=== PATIENT | male | born 1970 | race Caucasian/White ===

== ENCOUNTER 2023-07-10 22:46 | Inpatient (IN) | payer BC, SELFPAY ==
[2023-07-10 17:59] VITALS: BP 160/94
[2023-07-10 18:19] LABS: % Basophils 0.5 % (0-2); % Eosinophils 2.3 % (0-6); % Immature Granulocytes 0.3 % (0-0.5); % Monocytes 7.9 % (1.7-9.3); Absolute Basophils 0.1 10^3/uL (0-0.2); Absolute Eosinophils 0.3 10^3/uL (0-0.7); Absolute Lymphocytes 2.3 10^3/uL (1.2-3.4); Absolute Monocytes 1.2 10^3/uL (0.1-0.6); Absolute Neutrophils 10.7 10^3/uL (1.4-6.5); Hematocrit 52.1 % (39.0-52.0); Hemoglobin 16.8 g/dL (13.0-18.0); Mean Corp Hgb Conc. 32.2 g/dL (33.0-37.0); Mean Corpuscular Hgb 28.9 pg (27.0-31.0); Mean Corpuscular Volume 89.5 fL (80.0-94.0); Mean Platelet Volume 8.9 fL (7.4-10.4); Nucleated Red Blood Cells % 0 % (-); Platelet Count 325 10^3/uL (130-400); Red Blood Cell Count 5.82 10^6/uL (4.70-6.10); Red Cell Dist. Width 13.8 % (11.5-14.5); White Blood Cell Count 14.6 10^3/uL (4.8-10.8)
[2023-07-10 18:32] LABS: ALT (SGPT) 36 U/L (0-50); AST (SGOT) 21 U/L (17-59); Albumin 4.8 g/dl (3.5-5.0); Alkaline Phosphatase 102 U/L (38-126); Blood Urea Nitrogen 15 mg/dl (9-20); Calcium 10.2 mg/dl (8.4-10.2); Carbon Dioxide 29 mmol/L (22-30); Chloride 98 mmol/L (98-107); Glucose 187 mg/dl (70-99); Lipase 902 U/L (23-300); Potassium 4.1 mmol/L (3.5-5.1); Sodium 136 mmol/L (135-145); Total Bilirubin 0.7 mg/dl (0.2-1.3); Total Protein 7.9 g/dl (6.3-8.2); eGFR > 60.00
[2023-07-10 18:42] LABS: Troponin I < 0.012 ng/ml
[2023-07-10 19:49] LABS: Glucose - Point of Care 133 mg/dl (70-99)
[2023-07-10 19:52] VITALS: BMI 25.2
--- NOTE | 2023-07-10 20:04 | ED.GENMED ---
History of Present Illness
General
Chief Complaint: Abdominal Pain
Source: patient and spouse
Exam Limitations: none
Time Seen by Provider: 07/10/23 19:49
Nursing documentation reviewed up to this point in time: agreed with
Travel History
Have you had any contact with someone who has COVID-19?: No
Do you have any symptoms of coronavirus? Fever > 100 degrees, chills, cough, shortness of breath, sore throat, loss of taste or smell, muscle aches, or headache?: No
History of Present Illness
History of Present Illness:
53-year-old male presents emergency department due to upper abdominal pain and diffuse abdominal pain. He has had gallbladder cysts in the past, and is diabetic.
Past History
Past History
ED Past Medical History: Hypercholesterolemia, IDDM and NIDDM
ED Past Surgical History: Orthopedic (Back surgery)
Social History
Tobacco: Non-smoker
Alcohol: None
Drug: None
Personal:
Living: with family
Employment: Employed
Review of Systems
Review of Systems
Allergies reviewed?: Yes
All Other Systems: Not applicable
Constitutional: Reports no symptoms
EENT: Reports no symptoms
Respiratory: Reports no symptoms
Cardiac: Reports no symptoms
ABD/GI: Reports abdominal pain and nausea
: Reports no symptoms
Musculoskeletal: Reports no symptoms
Skin: Reports no symptoms
Neurological: Reports no symptoms
Endocrine: Reports no symptoms
Hematologic/Lymphatic: Reports no symptoms
Psychiatric: Reports no symptoms
Phy Exam
Physical Exam
Physical Exam:
Physical Exam
General: Afebrile
Neck: supple. no meningeal signs. normal posterior pharynx
Heart: s1/s2 regular rate and rhythm, no murmur. equal radial
pulses.
HEENT: Pupils equal round reactive to light, EOMI
Lungs: no acute respiratory distress. clear bilaterally
Abdomen: normal bowel sounds. Diffuse abdominal tenderness, worse in right upper quadrant. No CVAT
Neuro: alert and oriented. no focal neurological deficits cranial nerves II through XII intact
Skin: no rash
Psychiatric: well kept. interactive and cooperative
Extremities: no edema. no calf tenderness. negative homans. good distal pulses
Course
Orders/Labs/Results
Orders:
Orders
07/10/23 Breakfast
NPO
Allow oral meds: Yes
Allow clear liquids: Sips of Clears
NPO with Ice Chips: Yes
07/10/23 18:00
EKG [Electrocardiogram (*1)] Urgent
Reason for Study: Abdominal Pain
07/10/23 18:01
EKG- Treatment ONCE
US Abdomen Complete/Upper Urgent
Comment:
Reason For Exam: upper abdominal pain, history of galbladder issues
07/10/23 18:08
Complete Blood Count/With Diff Urgent
Comprehensive Metabolic Panel Urgent
Lipase Urgent
Troponin I Urgent
07/10/23 20:18
Iohexol [Omnipaque] See Protocol PO NOW STA
07/10/23 20:19
CT Abd/pelvis W Iv Cont Urgent
Comment:
Reason For Exam: diffuse abdominal pain, worse in epigastric area
07/10/23 20:25
IV Insert/Care/Rem.- Treatment PRN
0.9% Sodium Chloride 1000 ml [Nss] 1,000 ml IV BOLUS
07/10/23 21:18
Acetaminophen [Tylenol] 650 mg PO NOW STA
07/10/23 21:42
Admit/Transfer Patient As Directed
Co-Sign Provider:
Level of Care: Inpatient admission
Assign to:: Medical/Surgical
Physician / Group: Mc
Diagnosis: Pancreatitis
Reason for Hospitalization: IVFs, GI Consult
Expected length of stay greater than two midnights?: Yes
ELOS- Estimated Length of Stay in days: 3
I certify the patient meets the requirements for IP care: Yes
07/10/23 21:43
Code Status As Directed
Resuscitation Status: Full Code
07/10/23 23:13
0.9% Sodium Chloride 1000 ml [Nss] 1,000 ml IV 125 mls/hr
Acetaminophen [Tylenol] 650 mg PO Q4HPRN PRN
Dextrose 50%-Water [Dextrose 50% Syringe] 12.5 grams IV [id number] PRN
Glucagon [GlucaGen] 1 mg IM PRN PRN
HYDROmorphone [Dilaudid] 0.25 mg IV Q3HPRN PRN
Ketorolac [Toradol] 15 mg IV Q6HPRN PRN
Ondansetron Injectable [Zofran] 4 mg IV Q6HPRN PRN
07/10/23 23:13
Consult Notification Routine
Specialty to Notify: Gastroenterology
GASTROINTESTINAL CONSULT Routine
Consulting Provider: Martin Anderson
Was physician already notified: No
Reason for consult: Pancreatitis
Activity As Directed
Activity Level: Out of Bed-Early Mobility
With Assistance
Bedside Glucose Monitoring As Directed
Frequency: AC&HS
Additional Instructions:: Change to q6h if pt on TPN, tube feeding or not eating
I&O [Intake/ Output] As Directed
Frequency: q12h
Sequential Compression Device [Pneumatic Compression Sleeves] As Directed
Type: Knee high
Vital Signs As Directed
Frequency: Per unit guidelines
Weight As Directed
Frequency: Daily
DX Deep Vein Thrombosis Video Routine
07/11/23 06:00
Complete Blood Count/No Diff IN AM
Comprehensive Metabolic Panel IN AM
Glycohemoglobin (HgbA1c) IN AM
Lipase IN AM
Triglycerides IN AM
07/11/23 07:30
Insulin Aspart Corrective Mod [Novolog Flexpen-Moderate Resistance] See Protocol SC AC
07/11/23 08:00
Pantoprazole [Protonix IV] 40 mg IV DAILY
Abnormal Lab Results
07/10/23 07/10/23
18:08 19:47
WBC 14.6 H 10^3/uL
(4.8-10.8)
Hct 52.1 H %
(39.0-52.0)
MCHC 32.2 L g/dL
(33.0-37.0)
Absolute Neuts (auto) 10.7 H 10^3/uL
(1.4-6.5)
Absolute Monos (auto) 1.2 H 10^3/uL
(0.1-0.6)
Lymphocytes % 16.0 L %
(20.5-51.1)
Glucose 187 H mg/dl
(70-99)
Lipase 902 H U/L
(23-300)
POC Glucose 133 H mg/dl
(70-99)
07/10/23 18:08
07/10/23 18:08
Vital Signs
Initial and Last Documented VS:
Initial Vital Signs
Temp Pulse Resp BP Pulse Ox
98.0 F 85 17 160/94 99
07/10/23 17:59 07/10/23 17:59 07/10/23 17:59 07/10/23 17:59 07/10/23 17:59
Last Documented Vital Signs
Temp Pulse Resp BP Pulse Ox
98.0 F 85 17 160/94 99
07/10/23 17:59 07/10/23 17:59 07/10/23 17:59 07/10/23 17:59 07/10/23 17:59
MDM/Problems Addressed
Differential Diagnosis Includes:
Pancreatitis, cholecystitis
MDM/Problems Addressed:
53-year-old male with acute pancreatitis, unclear etiology. Admit to hospitalist.
Chronic conditions affecting care: DM
Acute Exacerbation and/or Progression of Chronic Illness: DM
*Radiology
Radiology exam reviewed: radiology read reviewed (Ultrasound no acute findings, CT abdomen pelvis shows pancreatic edema)
*Pulse Oximetry
Patient hypoxic: no
*EKG
Interpreted by ED Provider?: Yes
EKG Intrepretation Date: 07/10/23
EKG Intrepretation Time: 18:04
Interpretation: normal
Comparison EKG: no changes
Heart Rate: 79
Rate: normal
Rhythm: sinus
[place]: normal axis
Interval: normal interval
QRS Pattern: normal QRS
Ischemia: no ischemia
*District Sales Leader Interpretation
Rate: normal
Interpretation: normal
Heart Rate: 88
Rhythm: sinus
*Critical Care Note
Total Time (30-74mins, 75-104mins- exclusive of procedures): Not Applicable
Patient Management
Social determinants of health affecting care: Living situation
Discussion with other providers: Hospitalist
Escalation/DeEscalation of care consider admission/obs:
Admit indicated
ED Attending Note
-
Portions of this chart may have been created with voice recognition software.� Occasional wrong word or��sound alike� substitutions may have occurred due to the inherent limitations of voice recognition software.
Discharge Plan
Departure
Patient Disposition: Admit
Date of Disposition: 07/10/23
Time of Disposition: 21:19
Admit to: Med/Surg
Presentation/result/management discussed w/ accepting MD/DO: Hospitalist
Patient with high blood pressure during this ER visit?: Yes
Condition: Fair
Discharge Problem:
Acute pancreatitis
Interventions
Interventions:
*Risk Screen - Suicide Last Done: 07/10/23 17:59
*General Assessment Last Done: 07/10/23 17:59
*Neglect/Abuse Screening Last Done: 07/10/23 17:59
*ED COVID-19 Vaccine History Last Done: 07/10/23 17:59
JY-Lhnofa-Zcyaidpvpq Assessment Last Done: 07/10/23 19:52
[2023-07-10] MEDS: OMNIPAQUE 50 ML PO (20:27)
[2023-07-10] MEDS: NSS 1000 IV (20:36)
[2023-07-10] MEDS: TYLENOL 650 MG PO (21:21)
--- NOTE | 2023-07-10 22:39 | HPS.HSE ---
Addendum entered and electronically signed by Navneet Bentley DO 07/10/23 23:47:
Patient seen and examined independently. Agree with findings and plan as set forth by Christel Gonzalez PA-C.
Patient is a 53y M with PMH significant for DM-II who presents to ED complaining of abdominal pain with nausea x 3 days. Symptoms no worse / better despite PO intake. No prior history of similar symptoms. No fevers / chills, etc.
Patient has a known history of gallbladder polyps, but no cholelithiasis seen on multiple prior ultrasounds. He denies any alcohol intake.
He states that he and his PCP have discussed the potential for pancreatitis in the past - though it is not clear what might have prompted such discussions.
Ass:
Acute Pancreatitis
DM-II
Dyslipidemia
Plan:
Admit for further evaluation and treatment.
NPO, IVFs, pain control, antiemetics, etc.
Hold PO meds including DM medications acutely.
Follow glucose and cover with SSI (or supplemental dextrose) as needed.
GI evaluation for additional recommendations.
Follow for clinical improvement.
Original Note:
Family Physician
-
Family Physician: Duglas Garcia
Chief Complaint
-
Abdominal Pain
History of Present Illness
Patient is a 53 y/o male with a past medical history of diabetes mellitus, and hyperlipidemia who presents for abdominal pain, anorexia, diaphoresis, and nausea since Saturday. He starting experiencing intermittent epigastric pain with nausea on
Saturday afternoon. He tried taking Tums and Pepto Bismol but they did not alleviate his symptoms. He continued to experience these symptoms intermittently yesterday and today without improvement. He notes that his abdomen appears much more distended
than usual today. Today he called his primary care physician and he was advised to go to the emergency department. He denies shortness of breath, chest pain, and vomiting.
Medical History
Past Medical History
Past Medical History: Reports Other
Additional Past Medical History:
Diabetes Mellitus, Type II
Dyslipidemia
Past Surgical History: Reports Other
Additional Past Surgical History:
Lumbar Discectomy
Social History
Tobacco: Former Smoker (Quit 25 years ago)
Alcohol: None
Personal:
Family History
Family History: Not pertinent
Allergies / Home Medications
Allergies reflects when Allergies were last updated in [facility].
Home Medications with original date entered in [facility]
Allergy/Medication List:
Allergies
Allergy/AdvReac Type Severity Reaction Status Date / Time
Penicillins Allergy Unknown Verified 07/10/23 17:57
vancomycin Allergy Itching Verified 07/10/23 17:57
Home Medications
atorvastatin 20 mg tablet 20 mg PO DAILY 06/19/18
metformin 500 mg tablet 1,000 mg PO BID 06/19/18
aspirin 81 mg tablet,delayed release 81 mg PO DAILY 07/10/23
dulaglutide 1.5 mg/0.5 mL subcutaneous pen injector (Trulicity) 1.5 mg SC JULIO 07/10/23
empagliflozin 25 mg tablet (Jardiance) 25 mg PO DAILY 07/10/23
Review of Systems
-
A 12 point ROS was completed and negative except as noted: Yes
Constitutional: Denies Fever or Chills
Respiratory: Denies Cough or Trouble Breathing
Cardiac: Denies Chest Pain or Palpitations
Abdomen/GI: Reports See HPI
Physical Exam
Vital Signs
Vital Signs
Temp Pulse Resp BP Pulse Ox
98.0 F 85 17 160/94 99
07/10/23 17:59 07/10/23 17:59 07/10/23 17:59 07/10/23 17:59 07/10/23 17:59
Physical Exam
General: Comfortable and Conversant
HEENT: Anicteric and Moist mucous membranes
Respiratory: Clear and Non Labored Respirations
Cardiac: S1/S2 and Regular Rhythm
GI: Soft, Tender (Epigastric region without rebound or guarding) and Distended (Mild in upper regions)
Rectal: Deferred by Provider
Musculoskeletal: No Clubbing, No Cyanosis and No Edema
Skin: Warm and Dry
Neuro: Awake, Alert, Oriented and Nonfocal/grossly intact
Psych: Calm
Laboratory Results
-
07/10/23 18:08
07/10/23 18:08
Laboratory Results
Total Bilirubin 0.7 mg/dl (0.2-1.3) 07/10/23 18:08
AST 21 U/L (17-59) 07/10/23 18:08
ALT 36 U/L (0-50) 07/10/23 18:08
Alkaline Phosphatase 102 U/L (38-126) 07/10/23 18:08
Troponin I < 0.012 ng/ml 07/10/23 18:08
Lipase 902 U/L (23-300) H 07/10/23 18:08
Data Reviewed
-
CT Scan: Report Reviewed by me
Ultrasound: Report Reviewed by me
Lab Data: Labs Reviewed by me
Impression/Plan
-
Acute Pancreatitis, unclear etiology, possible medication vs auto-immune related
-Consult GI
-Continue NPO/IVFs
-Continue pain control
Diabetes Mellitus, Type II
-Hold oral meds
-Monitor sugars and continue coverage insulin
Dyslipidemia
-Hold atorvastatin while NPO
DVT proph: SCDs
Code Status: Full Code
[2023-07-10 23:00] VITALS: BP 140/79
[2023-07-11 00:32] LABS: Glucose - Point of Care 106 mg/dl (70-99)
[2023-07-11] MEDS: NSS 1000 IV ×2 (00:35→08:32)
[2023-07-11] MEDS: TORADOL 15 MG IV ×4 (00:37→19:53)
[2023-07-11 04:42] VITALS: BMI 25.5
[2023-07-11 05:06] VITALS: BP 133/95
[2023-07-11 05:17] LABS: Hematocrit 44.4 % (39.0-52.0); Hemoglobin 15.2 g/dL (13.0-18.0); Mean Corp Hgb Conc. 34.2 g/dL (33.0-37.0); Mean Corpuscular Hgb 29.3 pg (27.0-31.0); Mean Corpuscular Volume 85.7 fL (80.0-94.0); Mean Platelet Volume 8.9 fL (7.4-10.4); Platelet Count 267 10^3/uL (130-400); Red Blood Cell Count 5.18 10^6/uL (4.70-6.10); Red Cell Dist. Width 13.7 % (11.5-14.5); White Blood Cell Count 12.2 10^3/uL (4.8-10.8)
--- NOTE | 2023-07-11 05:29 | PTCARENOTE ---
Received pt from ED via stretcher into room 9582. Patient ambulated self w/out difficulty. Pt AAOx3, VSS, and sating 97% RA. Patient c/o upper abdomen 'bloating' and tender to palpation. Patient does not wish to take Tylenol at this time, and is
requesting Toradol. Patient is not due for Toradol until approx 06:37. Patient made aware and would like to wait. Oriented to room, call bull in reach. Aware of POC.
[2023-07-11 05:49] LABS: ALT (SGPT) 28 U/L (0-50); AST (SGOT) 19 U/L (17-59); Albumin 3.7 g/dl (3.5-5.0); Alkaline Phosphatase 90 U/L (38-126); Blood Urea Nitrogen 14 mg/dl (9-20); Carbon Dioxide 24 mmol/L (22-30); Chloride 104 mmol/L (98-107); Estimated Creatinine Clearance 104 ml/min; Glucose 112 mg/dl (70-99); Lipase 648 U/L (23-300); Sodium 134 mmol/L (135-145); Total Protein 6.3 g/dl (6.3-8.2); Triglycerides 82 mg/dl (10-149); eGFR > 60.00
[2023-07-11 07:28] VITALS: BP 140/82
[2023-07-11] MEDS: PROTONIX IV 40 MG IV (07:41)
[2023-07-11] MEDS: NSS (PRESERVATIVE FREE) 10 ML IV (07:41)
[2023-07-11 08:37] LABS: Glycohemoglobin (HgbA1c) 7.7 % (4.0-5.6)
--- NOTE | 2023-07-11 09:41 | CON.GI ---
Addendum entered and electronically signed by Martin Anderson MD 07/11/23 11:53:
I saw and examined the patient.
The SENIOR FINANCE MANAGER or PA's note was reviewed and I agree with the note.
Comment: 53yo male presents with abdominal pain, nausea since Saturday. Tried antacids but no improvement. Spoke with PCP who directed him to ER suspecting pancreatitis. Lipase 902. CT shows acute pancreatitis in head with large amt peripancreatic
edema. US shows GB polyps but no stones. He does not drink EtOH. No prior episodes of pancreatitis. No new meds- currently on Trulicity and Jardiance for DM. TG normal
REC:
Clears
Aggressive IVF
Already feeling better. Try solid foods for dinner
Check ALEXANDR, IgG4
Perhaps this could be medication induced pancreatitis due to Trulicity (has been reported with the GLP-1 agonists) or Jardiance (reported post marketing)
Original Note:
Consultation
-
Date/Time Consultation Requested: 07/10/23 5790
Date/Time Consultation Performed: 07/11/23 0915
Requesting Provider: Christel Gonzalez PA-C
Performing Provider: PITA Dupree, Martin Anderson MD
Reason for Consultation: pancreatitis
Medical History
Chief Complaint / HPI
Chief Complaint: abdominal pain
History of Present Illness:
Pt is a 53yo with hx diabetes for last 12 years(last med change in summer 2022 current Jardiance, trulicity use, lumbar surgery with occasional NSAID use for back pain, dyslipidemia, fatty liver, gallbladder polyps with prior gallbladder attack
several years ago presents with onset of abdominal pain with nausea and decreased appetite. He also admits to evaluation to hematology He initially tried antacids and pepto but symptoms progressed and presents to ER. In ER noted with lipase of
[address] notable for large amount of pancreatic and peripancreatic edema. no fluid collections, and mild reactive wall thickening in duodenum with ileus. HM steatosis and renal cysts, GB normal. US with no stone, acute cholecystitis or
obstruction, multiple Small GB polyps, steatosis, chronic renal disease b/l renal cysts. No prior hx pancreatitis or family hx pancreatitis , no ETOH or supplement use. No recent medication changes. TG 82, calcium 10.2 after admission.
Pt admits to pain 01/01 prior to admission now 3/10 mid to upper abdomen improved with pain meds. Some nausea with symptoms but no GERD, vomiting, hematemesis, diarrhea, constipation or rectal bleeding. No prior EGD. colon 1-2 years ago +
polyps done in [place].
Past Medical History
Past Medical History: Hypercholesterolemia, NIDDM and Other (fatty liver, gallbladder polyps, cervical disc disease, vitamin D deficiency, heme eval for elevated hbg, colon polyps )
Past Surgical History: Orthopedic (lumbar discectomy, b/l knee arthroscopy) and Other (lipoma from back removed)
Social History
Tobacco: Non-Smoker
Alcohol: None
Drug: None
Personal:
Living: With Family
Employment: Employed (travels with job )
Family History
Family History: Other (no family hx pancreatitis or pancreatic problems)
Allergies / Home Medications
Allergy/AdvReac Type Severity Reaction Status Date / Time
Penicillins Allergy Tested Verified 07/10/23 23:14
years ago.
vancomycin Allergy Itching Verified 07/10/23 23:14
AND RASH
�Medication �Instructions �Recorded
atorvastatin 20 mg tablet 20 mg PO DAILY High Cholesterol 06/19/18
metformin 500 mg tablet 1,000 mg PO BID Diabetes 06/19/18
aspirin 81 mg tablet,delayed 81 mg PO DAILY Blood Clot 07/10/23
release Prevention/Tx
dulaglutide 1.5 mg/0.5 mL 1.5 mg SC JULIO Diabetes 07/10/23
subcutaneous pen injector
(Trulicity)
empagliflozin 25 mg tablet 25 mg PO DAILY Diabetes 07/10/23
(Jardiance)
Review of Systems
-
History Source: Patient and Family
Constitutional: Reports Weight Loss (few lbs)
EENT: Reports No Symptoms
Respiratory: Reports No Symptoms
Cardiac: Reports No Symptoms
Abdomen/GI: Reports Abdominal Pain and Nausea
: Reports No Symptoms
Musculoskeletal: Reports Other (occasional back pain)
Skin: Reports No Symptoms
Neurological: Reports Weakness
Endocrine: Reports No Symptoms
Hematologic/Lymphatic: Reports No Symptoms
Vital Signs
Temp Pulse Resp BP Pulse Ox
98.3 F 80 18 140/82 96
07/11/23 07:00 07/11/23 09:24 07/11/23 07:00 07/11/23 07:28 07/11/23 07:00
Physical Exam
Exam
General: Well Developed, Well Nourished and No Apparent Distress
HEENT: Normocephalic and Anicteric
Respiratory: Clear
Cardiac: Regular Rhythm
GI: Soft, Non Distended and Tender (mid abdomen )
Musculoskeletal: No Clubbing and No Cyanosis
Skin: Warm and Dry
Neuro: Awake, Alert and AO x 3
Psych: Calm
Results
WBC 12.2 10^3/uL (4.8-10.8) H 07/11/23 05:05
Hgb 15.2 g/dL (13.0-18.0) 07/11/23 05:05
Hct 44.4 % (39.0-52.0) 07/11/23 05:05
MCV 85.7 fL (80.0-94.0) 07/11/23 05:05
Plt Count 267 10^3/uL (130-400) 07/11/23 05:05
Absolute Neuts (auto) 10.7 10^3/uL (1.4-6.5) H 07/10/23 18:08
Sodium 134 mmol/L (135-145) L 07/11/23 05:05
Potassium 4.0 mmol/L (3.5-5.1) 07/11/23 05:05
Chloride 104 mmol/L (98-107) 07/11/23 05:05
Carbon Dioxide 24 mmol/L (22-30) 07/11/23 05:05
BUN 14 mg/dl (9-20) 07/11/23 05:05
Creatinine 0.8 mg/dL (0.7-1.3) 07/11/23 05:05
Calcium 9.0 mg/dl (8.4-10.2) 07/11/23 05:05
Total Bilirubin 1.0 mg/dl (0.2-1.3) 07/11/23 05:05
AST 19 U/L (17-59) 07/11/23 05:05
ALT 28 U/L (0-50) 07/11/23 05:05
Alkaline Phosphatase 90 U/L (38-126) 07/11/23 05:05
Lipase 648 U/L (23-300) H 07/11/23 05:05
Diagnostic Image Results:
07/10/23 CT Abd/pelvis W Iv Cont
1. ACUTE INTERSTITIAL EDEMATOUS PANCREATITIS (greatest in the pancreatic head) with a large amount of pancreatic and peripancreatic edema.
2. No CT evidence for acute peripancreatic fluid collection.
3. Mild reactive wall thickening in the duodenum and moderate distention of the duodenum and stomach which is likely secondary to an ileus.
4. Mild hepatomegaly and mild diffuse hepatic steatosis.
5. Large number of bilateral parapelvic renal cysts.
07/10/23
1. No sonographic evidence for cholelithiasis, acute cholecystitis, or biliary obstruction.
2. Multiple small gallbladder polyps.
3. Severe diffuse hepatic steatosis.
4. Mild hepatosplenomegaly.
5. Moderate chronic bilateral renal disease.
6. Bilateral parapelvic renal cysts.
Prior GI Procedures:
EGD: none
Colonoscopy: 1-2 years ago with polyps
Assessment / Plan
-
Pt is a 53yo with hx diabetes for last 12 years(last med change in summer 2022 current Jardiance, trulicity use, lumbar surgery with occasional NSAID use for back pain, dyslipidemia, fatty liver, gallbladder polyps with prior gallbladder attack
several years ago presents with onset of abdominal pain with nausea and decreased appetite. He also admits to evaluation to hematology He initially tried antacids and pepto but symptoms progressed and presents to ER. In ER noted with lipase of
[address] notable for large amount of pancreatic and peripancreatic edema. no fluid collections, and mild reactive wall thickening in duodenum with ileus. HM steatosis and renal cysts, GB normal. US with no stone, acute cholecystitis or
obstruction, multiple Small GB polyps, steatosis, chronic renal disease b/l renal cysts. No prior hx pancreatitis or family hx pancreatitis , no ETOH or supplement use. No recent medication changes. TG 82, calcium 10.2 after admission.
-pancreatitis first episode
-concern for ileus and adjacent duodenal thickening
-leukocytosis
-recent heme work up for elevated hbg polycythemia vs erythrocytosis
-DM on chronic Jardiance/Trulicity/metformin
-NSAID use of back pain
-fatty liver
-GB polyps with prior GB attack
-dyslipidemia
-chronic renal disease in imaging
-hx colon polyps
PLAN:
Etiology of pancreatitis unclear-- no ETOH, normal TG, calcium, no family hx pancreatic issues, no stones on US or CT, no med changes but on Trulicity and Jardiance both with report post marketing pancreatitis per [employer], related to underlying
heme issue with ? polycythemia vs other -- less likely but in differential duodenal ulcer with thickening and NSAID use
-add IGG4 and ALEXANDR
-reviewed heme note polycythemia vs erythrocytosis -- MENDY-2, CL, AR mutation neg last visit in 11/2022 improve hematocrit, bone marrow bx held
-agree with aggressive IVF to change to LR at 200ml/hr
-pain control
-trial clear diet monitor for nausea with possible ileus if tolerating ADA diet later today
-discussed at length NSAID avoidance with duodenal thickening and renal disease
-on discharge GI follow up consider MRI(pt states he can not tolerate)/EUS if not better
-GI follow up for fatty liver
-
-
Thank you for consultation and allowing me to participate in the patient's care. Please call the button riveter GI physician during the after hours with any questions or concerns.
--- NOTE | 2023-07-11 09:56 | W.PN.HOSP.TC ---
Today's Communication/Plan
-
see bold
Assessment / Plan
Assessment / Plan
Gen: NAD, AAOx3.
Eyes: EOMI, PERRLA, no scleral icterus.
Neck: supple.
CV: RRR, +S1/S2, no m/r/g.
Resp: CTAB, no rales, wheezes, or rhonchi.
Abd: +BS, soft, mild epigastric TTP, ND
Skin: No rashes.
Neuro: CN 2-12 intact, non-focal.
Psych: Normal mood and affect.
CT A/P:
1. ACUTE INTERSTITIAL EDEMATOUS PANCREATITIS (greatest in the pancreatic head) with a large amount of pancreatic and peripancreatic edema.
2. No CT evidence for acute peripancreatic fluid collection.
3. Mild reactive wall thickening in the duodenum and moderate distention of the duodenum and stomach which is likely secondary to an ileus.
4. Mild hepatomegaly and mild diffuse hepatic steatosis.
5. Large number of bilateral parapelvic renal cysts.
Acute Pancreatitis, unclear etiology, possible medication vs auto-immune related
-Consult GI
-NPO
-change IVFs to LR @ 200cc/hr
-Continue pain control
Diabetes Mellitus, Type II
-Holding oral antihyperglycemics
-SSI/accuchecks
Dyslipidemia
-Holding atorvastatin while NPO
FULL/SCDs
Anticipated Discharge: 24 - 48 hours
Subjective/Interval History
-
Date of Service: July 11, 2023
Abd pain improving.
Objective Data
-
Labs:
Laboratory Results
07/11/23
05:05
WBC 12.2 H
Hgb 15.2
Hct 44.4
Plt Count 267
Sodium 134 L
Potassium 4.0
Chloride 104
Carbon Dioxide 24
BUN 14
Creatinine 0.8
Glucose 112 H
Calcium 9.0
Total Bilirubin 1.0
AST 19
ALT 28
Alkaline Phosphatase 90
Vital Signs:
Vital Signs
Temp Pulse Resp BP Pulse Ox
98.3 F 80 18 140/82 96
07/11/23 07:00 07/11/23 09:24 07/11/23 07:00 07/11/23 07:28 07/11/23 07:00
--- NOTE | 2023-07-11 10:40 | CM ---
Chart reviewed. Patient is independent of ADLS, lives in a [address], 5 [facility], 0 DME. Patient currently has no needs. Plan is for the patient to return home. CM to follow
[2023-07-11] MEDS: LR 1000 IV ×3 (11:05→20:42)
[2023-07-11 12:04] LABS: Glucose - Point of Care 129 mg/dl (70-99)
[2023-07-11 15:45] VITALS: BP 128/87
[2023-07-11 16:16] LABS: Glucose - Point of Care 91 mg/dl (70-99)
--- NOTE | 2023-07-11 17:53 | PTCARENOTE ---
Pt up in his room, declines SCD's but in bathroom every 20 minutes with aggressive IV fluid regime. Pt tolerated clear liquid lunch and 1800 boris evening meal. He states he felt full but denied nausea. Quiet bowel sounds left upper and lower abdomen.
Pt received toradol twice for abdominal soreness with complete relief.
--- NOTE | 2023-07-11 21:32 | PTCARENOTE ---
Pt received at start of shift, HR regular. Pt c/o of pain in upper L quadrant of abdomen rated at 5/10, toradol administered. Effective, new pain rating 0/10. LR infusing at 200mL/hr. Educated pt on plan of care, pt states no questions at this time.
Informed to notify RN if pain worsens, call bull within reach.
[2023-07-11 21:37] LABS: Glucose - Point of Care 168 mg/dl (70-99)
[2023-07-11 22:54] VITALS: BP 118/98
[2023-07-12] MEDS: LR 1000 IV ×3 (01:33→11:30)
[2023-07-12] MEDS: TORADOL 15 MG IV ×3 (01:53→14:07)
[2023-07-12 02:05] LABS: Hematocrit 44.6 % (39.0-52.0); Hemoglobin 14.7 g/dL (13.0-18.0); Mean Corpuscular Hgb 29.4 pg (27.0-31.0); Mean Corpuscular Volume 89.2 fL (80.0-94.0); Mean Platelet Volume 9.1 fL (7.4-10.4); Platelet Count 260 10^3/uL (130-400); Red Cell Dist. Width 13.5 % (11.5-14.5); White Blood Cell Count 11.6 10^3/uL (4.8-10.8)
[2023-07-12 02:20] LABS: ALT (SGPT) 22 U/L (0-50); AST (SGOT) 21 U/L (17-59); Albumin 3.8 g/dl (3.5-5.0); Alkaline Phosphatase 88 U/L (38-126); Blood Urea Nitrogen 20 mg/dl (9-20); Calcium 9.3 mg/dl (8.4-10.2); Carbon Dioxide 26 mmol/L (22-30); Chloride 101 mmol/L (98-107); Estimated Creatinine Clearance 93 ml/min; Glucose 169 mg/dl (70-99); Potassium 4.9 mmol/L (3.5-5.1); Sodium 139 mmol/L (135-145); Total Bilirubin 0.6 mg/dl (0.2-1.3); Total Protein 6.5 g/dl (6.3-8.2); eGFR > 60.00
[2023-07-12] MEDS: TYLENOL 650 MG PO (05:24)
[2023-07-12 06:00] VITALS: BMI 26.3
[2023-07-12 07:34] LABS: Glucose - Point of Care 137 mg/dl (70-99)
[2023-07-12 07:35] VITALS: BP 151/88
[2023-07-12] MEDS: PROTONIX IV 40 MG IV (07:57)
[2023-07-12] MEDS: NSS (PRESERVATIVE FREE) 10 ML IV (07:58)
--- NOTE | 2023-07-12 08:45 | W.PN.HOSP.TC ---
Addendum entered and electronically signed by Sandip Bill MD 07/12/23 15:22:
Total time spent on d/c = 31 min. This included today's physical exam, progress note, review of laboratory and diagnostic data, preparation of discharge documents and prescriptions, and discussions about the pt's hospital course and discharge plan
with the patient and other medical recruiter involved in the patient's care.
Original Note:
Today's Communication/Plan
-
see bold
Assessment / Plan
Assessment / Plan
Gen: NAD, AAOx3.
Eyes: EOMI, PERRLA, no scleral icterus.
Neck: supple.
CV: remains RRR, +S1/S2, no m/r/g.
Resp: remains CTAB, no rales, wheezes, or rhonchi.
Abd: remains +BS, soft, mild epigastric TTP, ND
Skin: No rashes.
Neuro: CN 2-12 intact, non-focal.
Psych: Normal mood and affect.
CT A/P:
1. ACUTE INTERSTITIAL EDEMATOUS PANCREATITIS (greatest in the pancreatic head) with a large amount of pancreatic and peripancreatic edema.
2. No CT evidence for acute peripancreatic fluid collection.
3. Mild reactive wall thickening in the duodenum and moderate distention of the duodenum and stomach which is likely secondary to an ileus.
4. Mild hepatomegaly and mild diffuse hepatic steatosis.
5. Large number of bilateral parapelvic renal cysts.
Acute Pancreatitis, unclear etiology, possible medication vs auto-immune related:
-GI following
-Was initially NPO, now diet advanced to diabetic diet
-cont IVFs LR @ 200cc/hr
-Continue pain control
Diabetes Mellitus, Type II
-Holding oral antihyperglycemics
-SSI/accuchecks
Dyslipidemia
-Holding atorvastatin while NPO
FULL/SCDs
Anticipated Discharge: Within 24 hours
Subjective/Interval History
-
Date of Service: July 12, 2023
Tolerating diet. Epigastric pain persists when Toradol wears off (approx 4.5 hours).
Objective Data
-
Labs:
Laboratory Results
07/12/23
01:52
WBC 11.6 H
Hgb 14.7
Hct 44.6
Plt Count 260
Sodium 139
Potassium 4.9
Chloride 101
Carbon Dioxide 26
BUN 20
Creatinine 0.9
Glucose 169 H
Calcium 9.3
Total Bilirubin 0.6
AST 21
ALT 22
Alkaline Phosphatase 88
Vital Signs:
Vital Signs
Temp Pulse Resp BP Pulse Ox
98.4 F 64 18 151/88 96
07/12/23 07:35 07/12/23 07:35 07/12/23 07:35 07/12/23 07:35 07/12/23 07:53
I&O
07/11/23 07/12/23 07/13/23
06:59 06:59 06:59
Intake Total 2880 / 2880 2400 / 2400
Balance 2880 / 2880 2400 / 2400
--- NOTE | 2023-07-12 10:59 | CM ---
Chart reviewed. Patient is independent of ADLS, lives with his in a [address], 5 [facility], 0 DME. Patient currently with no discharge needs. Plan is for the patient to return home. CM to follow
--- NOTE | 2023-07-12 11:39 | PTCARENOTE ---
C/o sharp lower abdominal pain 'gas' does not wish to take narcotics and is requesting 'gas x ' Pt encouraged to ambulate or lay on left side. MD notified awaiting orders
[2023-07-12 11:42] VITALS: BP 155/92
[2023-07-12] MEDS: MYLICON 80 MG PO (11:52)
[2023-07-12 12:07] LABS: Glucose - Point of Care 91 mg/dl (70-99)
--- NOTE | 2023-07-12 12:15 | W.PN.GI.CBS2 ---
Addendum entered and electronically signed by Vida Otero MD 07/12/23 15:41:
I saw and examined the patient.
The HAND SPINNER's note was reviewed and I agree with the note.
Comment: first episode of pancreatitis, unclear etiology cannot rule out drug-induced although rare could be from Trulicity or the Jardiance he has been on these medications for the past of 4 to 5 years the dose of Jardiance was increased about 3
years ago.. I did discuss with Dr. Garcia will hold those medications for now and he is going to discuss with patient over the weekend and likely start him on insulin. Symptoms have markedly improved he has been tolerating diet and being DC'd
home today. Also told him to avoid NSAIDs continue PPI for 4 to 6 weeks for possible peptic ulcer disease and duodenal thickening noted on CT. Feels slightly constipated I told him to take MiraLAX and glycerin suppository as needed. May need to
consider an MRI with MRCP if able to tolerate versus EUS as outpatient, he is going to follow-up with Dr. Anderson as outpatient and also see Dr. Garcia after DC. Less likely passed stone since his LFTs are normal he did have evidence of gallbladder
polyps on ultrasound but no obvious stone seen
He is also being evaluated by hematology for elevated hemoglobin and has a follow-up scheduled soon he says that his counts are improved so bone marrow biopsy was held
Original Note:
Today's Communication / Plan
-
low fat diet
reduce IVF
Assessment / Plan
-
Pt is a 53yo with hx diabetes for last 12 years(last med change in summer 2022 current Jardiance, trulicity use, lumbar surgery with occasional NSAID use for back pain, dyslipidemia, fatty liver, gallbladder polyps with prior gallbladder attack
several years ago presents with onset of abdominal pain with nausea and decreased appetite. He also admits to evaluation to hematology He initially tried antacids and pepto but symptoms progressed and presents to ER. In ER noted with lipase of
[address] notable for large amount of pancreatic and peripancreatic edema. no fluid collections, and mild reactive wall thickening in duodenum with ileus. HM steatosis and renal cysts, GB normal. US with no stone, acute cholecystitis or
obstruction, multiple Small GB polyps, steatosis, chronic renal disease b/l renal cysts. No prior hx pancreatitis or family hx pancreatitis , no ETOH or supplement use. No recent medication changes. TG 82, calcium 10.2 after admission.
-pancreatitis first episode
-concern for ileus and adjacent duodenal thickening
-leukocytosis
-recent heme work up for elevated hbg polycythemia vs erythrocytosis
-DM on chronic Jardiance/Trulicity/metformin
-NSAID use of back pain
-fatty liver
-GB polyps with prior GB attack
-dyslipidemia
-chronic renal disease in imaging
-hx colon polyps
PLAN:
Etiology of pancreatitis unclear-- no ETOH, normal TG, calcium, no family hx pancreatic issues, no stones on US or CT, no med changes but on Trulicity and Jardiance both with report post marketing pancreatitis per [employer], related to underlying
heme issue with ? polycythemia vs other -- less likely but in differential duodenal ulcer with thickening and NSAID use
- IGG4 and ALEXANDR pending
-reviewed heme note polycythemia vs erythrocytosis -- MENDY-2, CL, AR mutation neg last visit in 11/2022 improve hematocrit, bone marrow bx held
-Can start to decrease IV fluids
-pain control
-Continue low-fat diet
-discussed at length NSAID avoidance with duodenal thickening and renal disease
-on discharge GI follow up consider MRI(pt states he can not tolerate)/EUS if not better
-GI follow up for fatty liver as outpatient
Subjective
Subjective
Date of Service: July 12, 2023
Patient tolerating solid diet. The patient had a solid dinner last evening and this a.m. without any difficulty however he did develop some gas pains this morning. He was given simethicone with relief of symptoms. He did have a solid pebble-like
stool this morning that he had difficulty with. He states he usually is not constipated. The patient continues on IV fluids at 200 cc an hour. He continues to ambulate throughout the room. He was advised on taking deep breaths as he refused
incentive spirometer. He states if you ordered it for me I probably would not use it anyway. Patient is still utilizing analgesia every 5-6 hours.
Objective
Data Reviewed
Laboratory Data:
Laboratory Results
07/12/23 01:52
07/12/23 01:52
Laboratory Results
Total Bilirubin 0.6 mg/dl (0.2-1.3) 07/12/23 01:52
AST 21 U/L (17-59) 07/12/23 01:52
ALT 22 U/L (0-50) 07/12/23 01:52
Alkaline Phosphatase 88 U/L (38-126) 07/12/23 01:52
Lipase 648 U/L (23-300) H 07/11/23 05:05
Vital Signs and I&O:
Vital Signs
Temp Pulse Resp BP Pulse Ox
98.4 F 64 18 155/92 96
07/12/23 07:35 07/12/23 07:35 07/12/23 07:35 07/12/23 11:42 07/12/23 07:53
I&O
07/11/23 07/12/23 07/13/23
06:59 06:59 06:59
Intake Total 2880 / 2880 2400 / 2400
Balance 2880 / 2880 2400 / 2400
Physical Exam
Physical Exam
HEENT: Anicteric
Cardiology: Normal Sinus Rhythm
Pulmonary: Clear (Decreased bases bilaterally)
GI: Soft, Non Distended, Tender (Upper abdomen/periumbilical) and Normal Bowel Sounds
Extremities: No Edema
Neuro: Non Focal
--- NOTE | 2023-07-12 15:22 | W.DCSUMMARY ---
Discharge Summary
Discharge Data
Date of Admission: 07/10/23
Date of Discharge: 07/12/23
-
Pending Results: Yes
Additional Pending Results:
ALEXANDR, IgG4
Hospital Course
Primary diagnoses:
Acute idiopathic pancreatitis
Secondary diagnoses:
Type 2 diabetes mellitus
Hyperlipidemia
Consultants:
Gastroenterology
Imaging:
CT A/P:
1. ACUTE INTERSTITIAL EDEMATOUS PANCREATITIS (greatest in the pancreatic head) with a large amount of pancreatic and peripancreatic edema.
2. No CT evidence for acute peripancreatic fluid collection.
3. Mild reactive wall thickening in the duodenum and moderate distention of the duodenum and stomach which is likely secondary to an ileus.
4. Mild hepatomegaly and mild diffuse hepatic steatosis.
5. Large number of bilateral parapelvic renal cysts.
Hospital course: 53-year-old male who initially presented with chief complaints of abdominal pain and nausea as outlined in the H&P done on admission. Imaging above showing pancreatitis. Lipase was 902 and improved to 648. The patient was given
aggressive IV fluids. He was initially n.p.o. and then advance to diabetic diet. He was tolerating the diet at the time of discharge. He was seen in consultation by GI. ALEXANDR and IgG4 pending at the time of discharge. He is being discharged in
medically stable condition.
Discharge Plan
-
Patient Disposition: Home (Routine Discharge)
Discharge Diagnosis/Procedures: Acute pancreatitis
Condition: Good
Diet: Low Fat and Diabetic, Carb Controlled
Activity: As tolerated
Driving Restrictions: As prior to admission
Bathing Restrictions: None
Others Tests: return to ER for worsening pain, fever, vomiting or diet intolerance
Referrals:
Martin Anderson MD [Active] - (GI follow up for pancreatitis and fatty liver)
Duglas Garcia DO [Family Provider] - in less than 1 week
Prescriptions:
New
tramadol 50 mg tablet
50 mg PO Q6H PRN (Reason: severe pain) Qty: 8 0RF
Continued
metformin 500 MG tablet
1,000 mg PO BID
atorvastatin 20 MG tablet
20 mg PO DAILY
aspirin 81 mg Tablet,Delayed Release (Dr/Ec)
81 mg PO DAILY
Jardiance 25 mg tablet
25 mg PO DAILY
Trulicity 1.5 mg/0.5 mL pen injector
1.5 mg SC JULIO
Discharge Orders:
Discharge Patient (As Directed); Ordered 07/12/23
Ordered By: Sandip Bill
Care Plan Goals
Care Plan Goals:
Problem: Readiness for enhanced knowledge related to diagnosis and treatment plan
Goal: Understand your diagnosis and treatment plan needs, including medications if applicable.
Instructions: Know your diagnosis, underlying causes and treatment plan options, including medications if applicable. Consult with your health care team to learn about your diagnosis and treatment plan, including medications if applicable.
Discharge Date and Time
Print Language: TRINIDADIAN
--- NOTE | 2023-07-12 16:41 | PTCARENOTE ---
Discharge instructions reviewed with patient and spouse. Pt states understanding of instructions and s/s that warrant a call to MD. INT removed. Wheeled to car.
[2023-07-12 19:49] LABS: IgG Subclass 4 49 mg/dL (1-123)
[2023-07-13 22:31] LABS: ANA, IgG Reflex to HEp-2 None Detected (None Detected)
== END 2023-07-12 16:42 | disposition home or self-care (01) | DRG 439 ==
LOC: IVU 22:46
PROVIDERS: Emergency Medicine; Nurse Practitioner Adult Health; Physician Assistant Medical; ADMITTING PHYSICIAN Hospitalist; ATTENDING PHYSICIAN Internal Medicine; CONSULT PHYSICIAN Specialist; EMERGENCY PHYSICIAN Emergency Medicine; FAMILY PHYSICIAN Family Medicine
DX: K85.80 Other acute pancreatitis without necrosis or infection (principal); K56.7 Ileus, unspecified; Z87.891 Personal history of nicotine dependence; Z79.82 Long term (current) use of aspirin; E78.00 Pure hypercholesterolemia, unspecified; E11.8 Type 2 diabetes mellitus with unspecified complications
CPT/HCPCS: 74177; 76700; 80053; 82787; 82962; 83036; 83690; 84478; 84484; 85025; 85027; 86038; 93005; 96360; 96361; 99285; Q9967

== ENCOUNTER → 2025-02-06 09:15 | Outpatient (REF) | payer BC, SELFPAY | LOC: RAD 09:15 | PROVIDERS: ATTENDING PHYSICIAN Family Medicine | DX: M54.2 Cervicalgia (principal) | CPT/HCPCS: 72125 ==

== ENCOUNTER → 2025-03-15 07:56 | Outpatient (REF) | payer BC, SELFPAY | LOC: RAD 07:56 | PROVIDERS: ATTENDING PHYSICIAN Family Medicine | DX: E04.1 Nontoxic single thyroid nodule (principal); M54.9 Dorsalgia, unspecified; R07.89 Other chest pain | CPT/HCPCS: 71101; 72072; 76536 ==